=== PATIENT | female | born 1990 | race Caucasian/White ===

== ENCOUNTER 2021-02-20 20:42 | Emergency (ER) | payer OTHER, SELFPAY ==
[2021-02-20 20:45] VITALS: BP 148/70; PULSE 95; RESP 18; TEMP 36.3; O2SAT 98
--- NOTE | 2021-02-20 21:08 | PC.NURSE ---
Instructed pt to wash hands, pt used clotting powder prior to arrival, rubbed clotted blood off hand with difficulty, painful around wound, pt now soaking hand in soap and water.
--- NOTE | 2021-02-20 21:30 | ED.WOUNDLAC ---
HPI - Wound/Laceration General Chief Complaint: Wound/Laceration Stated Complaint: rt hand cut(s) Time Seen by Provider: 02/20/21 21:20 Source: patient Mode of arrival: Ambulatory History of Present Illness HPI narrative: Patient is a 30-year-old female here for evaluation of a cut that occur to her right ring finger. She was at work. She cut it on a glass. She stated that the bleeding continued despite their interventions at work. There was a clotting lb her used in the 1st aid kit at work. The bleeding continued so she came to the emergency department for evaluation. Review of Systems Musculoskeletal Comments: Pain over the area of the cut Integumentary/Breasts Comments: Cut to right ring finger Neurologic Neurologic: Reports system reviewed and no additional complaints, except as documented Hematologic/Lymphatic On Anticoagulants: No Patient History Medical History Healthy adult Social History Smoking Status: Never smoker Smoking Status: Never smoker alcohol intake frequency: a few times a month Substance Use Type: marijuana Exam Initial Vital Signs Initial Vital Signs: Vital Signs Temperature 97.3 F L 02/20/21 20:45 Pulse Rate 95 H 02/20/21 20:45 Respiratory Rate 18 02/20/21 20:45 Blood Pressure 148/70 H 02/20/21 20:45 Pulse Oximetry 98 02/20/21 20:45 Skin Other: 0.5 cm laceration to the right ring finger just lateral to the nail. There is no nail involvement. Neuro Other: No neurologic changes. Extrem Other: Full range of motion of right ring finger. Procedures Laceration Repair Laceration 1: Site: hand Side (If applicable): right Size (cm): 0.5 Description: linear Depth: simple, single layer Pre-repair: wound explored, irrigated extensively and deep structures intact Skin layer closed with: dermabond Course Vital Signs Vital signs: Vital Signs - 8 hr 02/20/21 20:45 Temperature 97.3 F L Pulse Rate 95 H Respiratory Rate 18 Blood Pressure 148/70 H Pulse Oximetry 98 MDM - Wound/Laceration MDM Narrative Medical decision making narrative: Wound appears well. No foreign body noted. Closed with Dermabond. Patient given care instructions and return precautions. She expressed understanding and agreement. Discharge Plan Departure Patient Disposition: Home Clinical Impression: Laceration Instructions: DI for Minor Laceration Activity Restrictions/Additional Instructions: You can wash your hands like normal in shower like normal however I do not recommend that you soak your handed anything until the Steri-Strips and skin glue have come off. You have no restrictions on your activities. Return to the emergency department for any new or worsening symptoms.
== END 2021-02-20 21:47 | disposition home or self-care (01) ==
PROVIDERS: Emergency Provider Emergency Medicine
DX: S61.214A Laceration without foreign body of right ring finger without damage to nail, initial encounter (principal); W25.XXXA Contact with sharp glass, initial encounter; Y99.0 Civilian activity done for income or pay
CPT/HCPCS: 12001; 99281; 99282